=== PATIENT | male | born 1985 | race Caucasian/White ===

== ENCOUNTER 2018-11-18 17:19 | Emergency (ER) | payer SELFPAY ==
[2018-11-18] MEDS ORDERED: ONDANSETRON 4 MG/2 ML VIAL ONE (17:58)
[2018-11-18] MEDS ORDERED: MORPHINE 4 MG/ML SYR ONE (17:58)
[2018-11-18] MEDS ORDERED: TETANUS & DIPHTHERIA TOX,ADULT 0.5 ML VIAL ONE (17:58)
[2018-11-18] MEDS ORDERED: NA CHLORIDE 0.9% 1,000 ML ONE (18:23)
[2018-11-18] MEDS ORDERED: KETOROLAC 30 MG/ML INJ ONE (18:23)
[2018-11-18] MEDS ORDERED: CEFAZOLIN/SWI 1gm 1 GM/10 ML SYR ONE (18:24)
--- NOTE | 2018-11-18 18:40 | EDPHYS ---
Physician Documentation [facility] Name: Manuelito Gruber Age: 33 yrs Sex: Male : 1985 Arrival Date: 11/18/2018 Time: 17:19 Bed 8 Private MD: ED Physician Colby Spann HPI: 11/18 18:08 This 33 yrs old Male presents to ER via Ambulatory with complaints of Hand gabby Injury. 18:08 The patient or guardian reports an abrasion, decreased range of motion, deformity, gabby pain. The complaints affect the left hand diffusely. Context: The problem was sustained at work, resulted from a crush injury. Onset: The symptoms/episode began/occurred just prior to arrival. Modifying factors: The symptoms are alleviated by elevation, holding still. Associated signs and symptoms: The patient has no apparent associated signs or symptoms. Severity of symptoms: At their worst the symptoms were severe, in the emergency department the symptoms have improved, moderately. The patient has not experienced similar symptoms in the past. Historical: - Allergies: 17:22 No Known Allergies; sv - PMHx: 17:22 None; sv - PSHx: 17:22 None; sv - Immunization history:: Adult Immunizations unknown. - Immunization history: Last tetanus immunization: > 10 years ago unknown. - Ebola Screening: : No symptoms or risks identified at this time. - Family history:: not pertinent. - Social history:: Smoking status: Patient/guardian denies using tobacco. ROS: 18:08 Constitutional: Negative for fever, chills, and weight loss, Eyes: Negative for injury, gabby pain, redness, and discharge, ENT: Negative for injury, pain, and discharge, Neck: Negative for injury, pain, and swelling, Cardiovascular: Negative for chest pain, palpitations, and edema, Respiratory: Negative for shortness of breath, cough, wheezing, and pleuritic chest pain, Abdomen/GI: Negative for abdominal pain, nausea, vomiting, diarrhea, and constipation, Back: Negative for injury and pain, : Negative for injury, bleeding, discharge, and swelling, Skin: Negative for injury, rash, and discoloration, Neuro: Negative for headache, weakness, numbness, tingling, and seizure, Psych: Negative for depression, anxiety, suicide ideation, homicidal ideation, and hallucinations, Allergy/Immunology: Negative for hives, rash, and allergies, Hematologic/Lymphatic: Negative for swollen nodes, abnormal bleeding, and unusual bruising. 18:08 MS/extremity: Positive for decreased range of motion, pain, swelling, tenderness, of the left hand. Exam: 18:08 Constitutional: This is a well developed, well nourished patient who is awake, alert, gabby and in no acute distress. Head/Face: Normocephalic, atraumatic. Eyes: Pupils equal round and reactive to light, extra-ocular motions intact. Lids and lashes normal. Conjunctiva and sclera are non-icteric and not injected. Cornea within normal limits. Periorbital areas with no swelling, redness, or edema. ENT: Nares patent. No nasal discharge, no septal abnormalities noted. Tympanic membranes are normal and external auditory canals are clear. Oropharynx with no redness, swelling, or masses, exudates, or evidence of obstruction, uvula midline. Mucous membranes moist. Neck: Trachea midline, no thyromegaly or masses palpated, and no cervical lymphadenopathy. Supple, full range of motion without nuchal rigidity, or vertebral point tenderness. No Meningismus. Chest/axilla: Normal chest wall appearance and motion. Nontender with no deformity. No lesions are appreciated. Cardiovascular: Regular rate and rhythm with a normal S1 and S2. No gallops, murmurs, or rubs. Normal PMI, no JVD. No pulse deficits. Respiratory: Lungs have equal breath sounds bilaterally, clear to auscultation and percussion. No rales, rhonchi or wheezes noted. No increased work of breathing, no retractions or nasal flaring. Abdomen/GI: Soft, non-tender, with normal bowel sounds. No distension or tympany. No guarding or rebound. No evidence of tenderness throughout. Back: No spinal tenderness. No costovertebral tenderness. Full range of motion. Skin: Warm, dry with normal turgor. Normal color with no rashes, no lesions, and no evidence of cellulitis. Neuro: Awake and alert, GCS 15, oriented to person, place, time, and situation. Cranial nerves II-XII grossly intact. Motor strength 5/5 in all extremities. Sensory grossly intact. Cerebellar exam normal. Normal gait. Psych: Awake, alert, with orientation to person, place and time. Behavior, mood, and affect are within normal limits. 18:08 Musculoskeletal/extremity: ROM: limited active range of motion, limited passive range of motion, Circulation is intact in all extremities. Sensation intact. Compartment Syndrome exam of affected extremity: is normal. DVT Exam: pain, swelling, tenderness. Vital Signs: 17:23 BP 167 / 111; Pulse 78; Resp 24; Temp 98.7; Pulse Ox 100% ; Weight 79.38 kg; Height 5 sv ft. 10 in. (177.80 cm); Pain 10/10; 18:20 BP 155 / 89; Pulse 67; Resp 17; Pulse Ox 99% on R/A; tw2 19:15 BP 158 / 95; Pulse 57; Resp 17; Pulse Ox 99% on R/A; tw2 17:23 Body Mass Index 25.11 (79.38 kg, 177.80 cm) sv [place] Com[place] Score: 17:23 Eye Response: spontaneous(4). Verbal Response: oriented(5). Motor Response: obeys sv commands(6). Total: 15. Trauma Score (Adult): 17:23 Eye Response: spontaneous(1); Verbal Response: oriented(1); Motor Response: obeys sv commands(2); Systolic BP: > 89 mm Hg(4); Respiratory Rate: 10 to 29 per min(4); [place] Score: 15; Trauma Score: 12 MDM: 17:41 Patient medically screened. [facility] 18:13 Data reviewed: vital signs, nurses notes, radiologic studies. [facility] 11/18 17:32 Order name: Hand Left 3 View XRAY 11/18 18:01 Order name: IV Start; Complete Time: 18:09 [facility] 11/18 18:36 Order name: Wound dressing; Complete Time: 18:53 [facility] 11/18 18:39 Order name: Ice pack; Complete Time: 18:53 [facility] 11/18 18:43 Order name: Splint: volar ocl hand, in anatomic position; Complete Time: 19:14 [facility] Administered Medications: 18:04 Drug: Zofran 4 mg Route: IVP; Site: right forearm; tw2 18:24 Follow up: Response: No adverse reaction tw2 18:05 Drug: morphine 4 mg Route: IVP; Site: right forearm; tw2 18:24 Follow up: Response: No adverse reaction; Pain is unchanged, physician notified tw2 18:07 Drug: Tetanus-Diphtheria Toxoid Adult 0.5 ml {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 Exp: tw2 09/11/2020. Lot #: [id number]. } Route: IM; Site: right deltoid; 18:24 Follow up: Response: No adverse reaction tw2 18:15 Drug: Ancef 1 grams Route: IVPB; Site: right forearm; tw2 18:20 Follow up: Response: No adverse reaction; IV Status: Completed infusion tw2 18:22 Follow up: Response: No adverse reaction; IV Status: Completed infusion tw2 18:18 Drug: NS 0.9% 1000 ml Route: IV; Rate: 1 bolus; Site: right forearm; tw2 19:15 Follow up: Response: No adverse reaction; IV Status: Completed infusion; IV Intake: tw2 1000ml 18:20 Drug: TORadol 30 mg Route: IVP; Site: right forearm; tw2 19:14 Follow up: Response: No adverse reaction; Pain is decreased tw2 18:22 Drug: Neosporin Ointment 1 application Route: Topical; Site: wound; tw2 Disposition: 11/18/18 18:39 Discharged to Home. Impression: Crushing injury of hand - left, Displaced fracture of proximal phalanx of left ring finger. - Condition is Stable. - Discharge Instructions: Laceration Care, Adult, Laceration Care, Adult, [id number], Crush Injury of the Hand, [id number], Crush Injury of the Hand. - Prescriptions for Keflex 500 mg Oral Capsule - take 1 capsule by ORAL route every 6 hours for 10 days; 28 capsule. Tylenol- Codeine #3 300-30 mg Oral Tablet - take 2 tablet by ORAL route every 6 hours As needed; 30 tablet. - Medication Reconciliation Form, Thank You Letter, Antibiotic Education, Prescription Opioid Use, Work release form form. - Follow up: Private Physician; When: 2 - 3 days. Follow up: Michael Jackman; When: 2 - 3 days; Reason: Recheck today's complaints, Continuance of care, Re-evaluation by your physician. - Problem is new. - Symptoms have improved. Signatures: Dispatcher [employer] Haylee Hollins RN RN sv Anderson, Corey, MD MD cha Wise, Tara, RN RN tw2 Corrections: (The following items were deleted from the chart) 19:17 18:39 11/18/2018 18:39 Discharged to Home. Impression: Crushing injury of hand - left; tw2 Displaced fracture of proximal phalanx of left ring finger. Condition is Stable. Discharge Instructions: Laceration Care, Adult, Laceration Care, Adult, [id number], Crush Injury of the Hand, [id number], Crush Injury of the Hand. Prescriptions for Keflex 500 mg Oral Capsule - take 1 capsule by ORAL route every 6 hours for 10 days; 28 capsule, Tylenol-Codeine #3 300-30 mg Oral Tablet - take 2 tablet by ORAL route every 6 hours As needed; 30 tablet. and Forms are Medication Reconciliation Form, Thank You Letter, Antibiotic Education, Prescription Opioid Use. Follow up: Private Physician; When: 2 - 3 days. Follow up: Michael Jackman; When: 2 - 3 days; Reason: Recheck today's complaints, Continuance of care, Re-evaluation by your physician. Problem is new. Symptoms have improved. gabby
--- NOTE | 2018-11-18 18:40 | ER ---
Nurse's Notes [facility] Name: Manuelito Gruber Age: 33 yrs Sex: Male : 1985 Arrival Date: 11/18/2018 Time: 17:19 Bed 8 Private MD: Diagnosis: Crushing injury of hand-left;Displaced fracture of proximal phalanx of left ring finger Presentation: 11/18 17:21 Presenting complaint: Patient states: left hand smashed between a trailer and a hitch sv happened today. Transition of care: patient was not received from another setting of care. Onset of symptoms was November 18, 2018. Care prior to arrival: None. 17:21 Method Of Arrival: Ambulatory sv 17:21 Acuity: FERNANDO 2 sv 17:30 Initial Sepsis Screen: Does the patient meet any 2 criteria? RR > 20 per min. No. sv Patient's initial sepsis screen is negative. Does the patient have a suspected source of infection? Yes: Skin breakdown/wound. 17:39 Mechanism of Injury: "left hand smashed between a trailer and a hitch". Trauma event tw2 details: Injury occurred in the [facility]. 18:20 Risk Assessment: Do you want to hurt yourself or someone else? Patient reports no tw2 desire to harm self or others. Triage Assessment: 18:20 Injury Description: Crush injury sustained to left hand. tw2 Trauma Activation: Not Applicable Physician: ED Physician; Name: ; Notified At: ; Arrived At: Physician: General Surgeon; Name: ; Notified At: ; Arrived At: Physician: Radiology; Name: ; Notified At: ; Arrived At: Physician: Respiratory; Name: ; Notified At: ; Arrived At: Physician: Lab; Name: ; Notified At: ; Arrived At: Historical: - Allergies: 17:22 No Known Allergies; sv - PMHx: 17:22 None; sv - PSHx: 17:22 None; sv - Immunization history:: Adult Immunizations unknown. - Immunization history: Last tetanus immunization: > 10 years ago unknown. - Ebola Screening: : No symptoms or risks identified at this time. - Family history:: not pertinent. - Social history:: Smoking status: Patient/guardian denies using tobacco. Screenin:33 Abuse screen: Denies threats or abuse. Nutritional screening: No deficits noted. tw2 Tuberculosis screening: No symptoms or risk factors identified. Fall Risk None identified. Primary Survey: 17:23 NO uncontrolled hemorrhage observed. A: The patient is alert. Airway: patent, No sv supplemental oxygen in use on arrival. Oral cavity: clear, Trachea midline. Breathing/Chest: Respiratory pattern: tachypnea, Respiratory effort: spontaneous, unlabored, Chest inspection: symmetrical rise and fall of the chest. Circulation: Skin color: pink. Disability Alert. Exposure/Environment: All clothing and personal items were removed. Forensic evidence collection is not deemed to be indicated at this time. Items placed in patient belonging bag. There is no evidence of uncontrolled external bleeding. Obvious injury(ies) are noted at this time: open wound to the left hand. 18:00 Reassessment Airway Airway Patent Breathing/Chest Respiratory pattern Regular tw2 Respiratory effort Spontaneous Unlabored Breath sounds Clear Chest inspection Symmetrical Circulation Heart tones Present Disability Alert. Secondary Survey: 17:23 HEENT: No deficits noted. Gastrointestinal: No deficits noted. : No deficits noted. sv No signs and/or symptoms were reported regarding the genitourinary system. Musculoskeletal: Swelling present in left hand. Assessment: 18:20 Reassessment: Patient appears in no apparent distress at this time. No changes from tw2 previously documented assessment. Patient and/or family updated on plan of care and expected duration. Pain level reassessed. Patient is alert, oriented x 3, equal unlabored respirations, skin warm/dry/pink. 18:20 General: Appears uncomfortable, Behavior is cooperative, appropriate for age. Pain: tw2 Complains of pain in left hand. 19:16 Reassessment: Patient appears in no apparent distress at this time. No changes from tw2 previously documented assessment. Patient and/or family updated on plan of care and expected duration. Pain level reassessed. Patient is alert, oriented x 3, equal unlabored respirations, skin warm/dry/pink. Vital Signs: 17:23 BP 167 / 111; Pulse 78; Resp 24; Temp 98.7; Pulse Ox 100% ; Weight 79.38 kg; Height 5 sv ft. 10 in. (177.80 cm); Pain 10/10; 18:20 BP 155 / 89; Pulse 67; Resp 17; Pulse Ox 99% on R/A; tw2 19:15 BP 158 / 95; Pulse 57; Resp 17; Pulse Ox 99% on R/A; tw2 17:23 Body Mass Index 25.11 (79.38 kg, 177.80 cm) sv [place] Coma Score: 17:23 Eye Response: spontaneous(4). Verbal Response: oriented(5). Motor Response: obeys sv commands(6). Total: 15. Trauma Score (Adult): 17:23 Eye Response: spontaneous(1); Verbal Response: oriented(1); Motor Response: obeys sv commands(2); Systolic BP: > 89 mm Hg(4); Respiratory Rate: 10 to 29 per min(4); [place] Score: 15; Trauma Score: 12 ED Course: 17:19 Patient arrived in ED. as 17:22 Triage completed. sv 17:22 Arm band placed on. sv 17:24 Bed in low position. Call light in reach. Pulse ox on. NIBP on. tw2 17:33 Iris Merino, RN is Primary Nurse. tw2 17:39 Patient maintains SpO2 saturation greater than 95% on room air. tw2 17:39 Thermoregulation: n/a. tw2 17:41 Colby Spann MD is Attending Physician. gabby 18:02 Missed attempt(s): 22 gauge in right antecubital area. Bleeding controlled, band aid tw2 applied, catheter tip intact. Missed attempt(s): 22 gauge in left antecubital area. Bleeding controlled, band aid applied, catheter tip intact. 18:25 Hand Left 3 View XRAY In Process Unspecified. EDMS 18:37 Michael Jackman MD is Referral Physician. gabby 19:02 Orthoglass splint: Volar splint applied on left arm Radial pulse present and within jb1 normal limits before and after application of splint. Capillary refill was one second before and after application of splint. 19:16 No provider procedures requiring assistance completed. IV discontinued, intact, tw2 bleeding controlled, No redness/swelling at site. Pressure dressing applied. 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 Exp: tw2 09/11/2020. Lot #: [id number]. } Route: IM; Site: right deltoid; 18:24 Follow up: Response: No adverse reaction tw2 18:15 Drug: Ancef 1 grams Route: IVPB; Site: right forearm; tw2 18:20 Follow up: Response: No adverse reaction; IV Status: Completed infusion tw2 18:22 Follow up: Response: No adverse reaction; IV Status: Completed infusion tw2 18:18 Drug: NS 0.9% 1000 ml Route: IV; Rate: 1 bolus; Site: right forearm; tw2 19:15 Follow up: Response: No adverse reaction; IV Status: Completed infusion; IV Intake: tw2 1000ml 18:20 Drug: TORadol 30 mg Route: IVP; Site: right forearm; tw2 19:14 Follow up: Response: No adverse reaction; Pain is decreased tw2 18:22 Drug: Neosporin Ointment 1 application Route: Topical; Site: wound; tw2 Intake: 17:23 PO: 0ml; Total: 0ml. sv 19:15 IV: 1000ml; Total: 1000ml. tw2 Output: 17:23 Urine: 0ml; Total: 0ml. sv Outcome: 18:39 Discharge ordered by . gabby 19:16 Discharged to home ambulatory, with family. tw2 19:16 Condition: stable 19:16 Discharge instructions given to patient, family, Instructed on discharge instructions, follow up and referral plans. no drinking with medication, no driving heavy equipment, medication usage, wound care, splint care Demonstrated understanding of instructions, follow-up care, medications, Prescriptions given X 2. 19:17 Patient left the ED. tw2 19:17 Patient's length of stay was not longer than 2 hours. tw2 Signatures: Dispatcher [employer] EDMS Rj Raines Stephanie, BRIANNE RN Colby Villalta MD MD cha Martinez, Amelia as Wise, Tara, RN RN tw2 Corrections: (The following items were deleted from the chart) 17:24 17:23 Pulse 78bpm; Resp 24bpm; Pulse Ox 100%; Temp 98.7F; 79.38 kg; Height 5 ft. 10 sv in.; BMI: 25.1; Pain 05/07; sv 17:31 17:30 Initial Sepsis Screen: Does the patient meet any 2 criteria? RR > 20 per min. Yes sv Does the patient have a suspected source of infection? Yes: Skin breakdown/wound sv :31 17:30 Initial Sepsis Screen: Does the patient meet any 2 criteria? RR > 20 per min. Yes sv Does the patient have a suspected source of infection? Yes: Skin breakdown/wound sv
--- NOTE | 2018-11-18 19:05 | RAD REPORT ---
EXAM DESCRIPTION: RAD - Hand Left 3 View - 11/18/2018 6:25 pm CLINICAL HISTORY: Hand pain, blunt force trauma COMPARISON: None. FINDINGS: An oblique fracture runs along the long axis of the shaft proximal fourth phalanx. No sign ificant distraction or angulation deformity. Articular surfaces at the MCP joint and PIP joint do not appear to be involved. No other fracture confirmed. No air or foreign body seen. Soft tissue swellin g is present. IMPRESSION: Left fourth proximal phalanx fracture as detailed.
== END 2018-11-18 19:17 | disposition home or self-care (01) ==
LOC: ER 17:19
DX: S62.645A Nondisplaced fracture of proximal phalanx of left ring finger, initial encounter for closed fracture (principal); X58.XXXA Exposure to other specified factors, initial encounter; Z23 Encounter for immunization
CPT/HCPCS: 90471; 90714; 96361; 96374; 96375; 99284; J0690; J2405; J7030